=== PATIENT | female | born 1990 | race Asian ===

== ENCOUNTER 2017-12-19 12:12 | Emergency (ER) | payer SELFPAY ==
[~2017-12-19] VITALS: Ht 157.5 cm; Wt 67.1 kg
[2017-12-19 12:14] VITALS: Ht 157.5 cm; Wt 67.1 kg
[2017-12-19 12:46] LABS: BASOPHIL % 0.5 % (0-2); PLATELET COUNT 308 x10^3mcL (130-400); RED CELL DISTRIBUTION WIDTH 13.2 % (11.5-14.5)
[2017-12-19 12:52] LABS: CALCIUM 9.1 mg/dL (8.5-10.1); CARBON DIOXIDE 24.6 mmol/L (21-32); CHLORIDE SERUM 101 mmol/L (98-107); CREATININE SERUM 0.8 mg/dL (0.6-1.0); GFR1 > 60 mL/min; GLUCOSE SERUM 243 mg/dL (74-106); POTASSIUM SERUM 3.7 mmol/L (3.5-5.1); SODIUM SERUM 138 mmol/L (136-145)
[2017-12-19 12:56] LABS: ALBUMIN 3.7 g/dL (3.4-5.0); ALKALINE PHOSPHATASE 118 U/L (46-116); ALT/SGPT 22 U/L (14-59); AST/SGOT 10 U/L (15-37); BILIRUBIN TOTAL 0.6 mg/dL (0.20-1.00); LIPASE 313 IU/L (73-393)
[2017-12-19 12:57] LABS: TOTAL PROTEIN, SERUM 8.6 g/dL (6.4-8.2)
[2017-12-19 13:59] VITALS: BP 142/74
== END 2017-12-19 13:59 | disposition home or self-care (01) ==
LOC: ED 12:12
PROVIDERS: Emergency Medicine
DX: K29.70 Gastritis, unspecified, without bleeding (principal); E11.8 Type 2 diabetes mellitus with unspecified complications; Z90.49 Acquired absence of other specified parts of digestive tract
CPT/HCPCS: 36415; J1885; Q0092